=== PATIENT | female | born 1965 | race Caucasian/White ===

== ENCOUNTER 2017-09-06 13:44 | Inpatient (IN) | payer OTHER ==
[2017-09-06 15:30] LABS: ADD MAN DIFF? NO
[2017-09-06] MEDS: SOD CHLORIDE 0.9% 1,000 ML IV ×2 (15:31→23:11)
[2017-09-06 15:34] LABS: WHITE BLOOD COUNT 9.4 10^3/ul (4.8-10.8)
[2017-09-06 15:34] LABS: BASOPHILS % 0.3 % (0.0-2.0); EOSINOPHILS # 0.4 10^3/ul (0.0-0.5); HEMATOCRIT 32.5 % (37.0-47.0); HEMOGLOBIN 10.9 g/dl (12.0-16.0); LYMPHOCYTES # 3.3 10^3/ul (0.8-2.9); LYMPHOCYTES % 35.6 % (15.0-51.0); MEAN CORPUSCULAR HEMOGLOBIN 30.7 pg (29.0-33.0); MEAN CORPUSCULAR HGB CONC 33.5 g/dl (32.0-37.0); MEAN CORPUSCULAR VOLUME 91.5 fl (82.0-101.0); MONOCYTE # 0.6 10^3/ul (0.3-0.9); MONOCYTES % 5.9 % (0.0-11.0); NEUTROPHILS % 53.9 % (39.0-77.0); PLATELET COUNT 245 10^3/UL (140-415); RED BLOOD COUNT 3.55 10^6/ul (4.20-5.40); RED CELL DISTRIBUTION WIDTH 12.3 % (11.5-14.5)
[2017-09-06 16:01] LABS: ANION GAP 16 (8-16); BLOOD UREA NITROGEN 37 mg/dl (7-20); CALCIUM 8.6 mg/dl (8.4-10.2); CARBON DIOXIDE 27 mmol/L (21-31); CHLORIDE 100 mmol/L (97-110); CREATININE 1.78 mg/dl (0.44-1.00); GLUCOSE 286 mg/dl (70-220); SODIUM 137 mmol/L (135-144)
[2017-09-06 16:18] LABS: POTASSIUM 6.1 mmol/L (3.5-5.1); TROPONIN-I < 0.012 ng/ml (0.00-0.12)
[2017-09-06 17:06] LABS: ADD UMIC YES; UR ASCORBIC ACID NEGATIVE (NEGATIVE); UR BACTERIA MANY /HPF (NONE SEEN); UR BILIRUBIN (Dip) NEGATIVE (NEGATIVE); UR BLOOD (Dip) NEGATIVE (NEGATIVE); UR BUDDING YEAST FEW /HPF (NONE SEEN); UR CLARITY SLIGHTLY CLOUDY (CLEAR); UR COLOR YELLOW (YELLOW); UR GLUCOSE (Dip) 3+ mg/dL (NEGATIVE); UR KETONES (Dip) NEGATIVE (NEGATIVE); UR LEUKOCYTE ESTERASE (Dip) 2+ Leu/ul (NEGATIVE); UR NITRITE (Dip) NEGATIVE (NEGATIVE); UR RBC 1 /HPF (0-5); UR SPECIFIC GRAVITY (Dip) 1.005 (1.003-1.030); UR SQUAMOUS EPITHELIAL CELL FEW /HPF (FEW); UR TOTAL PROTEIN (Dip) 3+ mg/dl (NEGATIVE); UR UROBILINOGEN (Dip) NEGATIVE (NEGATIVE); UR WBC 41 /HPF (0-5)
[2017-09-06] MEDS ORDERED: DEXTROSE 50% 50 ML SYRINGE IV ×3 (18:30→22:00)
[2017-09-06] MEDS: CEFTRIAXONE 1 GM/50 ML (PMX) 50 ML IVPB (18:47)
[2017-09-06] MEDS: DEXTROSE 50% 50 ML SYRINGE IV (18:47)
[2017-09-06] MEDS: INSULIN REGULAR, HUMAN 100 UNIT/1 ML 3ML VIAL IVP (18:49)
[2017-09-06] MEDS ORDERED: SODIUM BICARBONATE (IV ADD) 150 MEQ in DEXTROSE 5% 1,000 ML IV (19:23)
[2017-09-06] MEDS ORDERED: DOCUSATE SODIUM 100 MG CAP PO (19:30)
[2017-09-06] MEDS ORDERED: HYDROCODONE/APAP (5/325) TAB PO (19:30)
[2017-09-06] MEDS ORDERED: ONDANSETRON 4 MG INJ IV (19:30)
[2017-09-06] MEDS ORDERED: ZOLPIDEM 5 MG TAB PO (19:30)
[2017-09-06] MEDS ORDERED: ACETAMINOPHEN 325 MG TAB PO (19:30)
[2017-09-06] MEDS ORDERED: LORAZEPAM 2 MG INJ IV (19:30)
[2017-09-06] MEDS ORDERED: BISACODYL 10 MG SUPP PR (19:30)
[2017-09-06] MEDS: HYDROmorphONE 0.5 MG/0.5 ML SYG IV (19:53)
[2017-09-06 20:14] LABS: ADD MAN DIFF? NO
[2017-09-06 20:18] LABS: BASOPHILS % 0.5 % (0.0-2.0); EOSINOPHILS # 0.4 10^3/ul (0.0-0.5); EOSINOPHILS % 4.4 % (0.0-7.0); HEMATOCRIT 29.3 % (37.0-47.0); LYMPHOCYTES # 3.4 10^3/ul (0.8-2.9); LYMPHOCYTES % 39.8 % (15.0-51.0); MEAN CORPUSCULAR HEMOGLOBIN 31.3 pg (29.0-33.0); MEAN CORPUSCULAR HGB CONC 34.1 g/dl (32.0-37.0); MEAN CORPUSCULAR VOLUME 91.8 fl (82.0-101.0); MEAN PLATELET VOLUME 10.9 fl (7.4-10.4); MONOCYTE # 0.6 10^3/ul (0.3-0.9); MONOCYTES % 6.7 % (0.0-11.0); NEUTROPHIL # 4.2 10^3/ul (1.6-7.5); NEUTROPHILS % 48.3 % (39.0-77.0); PLATELET COUNT 212 10^3/UL (140-415); RED BLOOD COUNT 3.19 10^6/ul (4.20-5.40); RED CELL DISTRIBUTION WIDTH 12.6 % (11.5-14.5)
[2017-09-06 20:18] LABS: WHITE BLOOD COUNT 8.7 10^3/ul (4.8-10.8)
[2017-09-06 20:42] LABS: ANION GAP 14 (8-16); BLOOD UREA NITROGEN 36 mg/dl (7-20); CALCIUM 8.4 mg/dl (8.4-10.2); CARBON DIOXIDE 28 mmol/L (21-31); CHLORIDE 105 mmol/L (97-110); CREATININE 1.53 mg/dl (0.44-1.00); GLUCOSE 255 mg/dl (70-220); POTASSIUM 5.2 mmol/L (3.5-5.1); SODIUM 142 mmol/L (135-144)
[2017-09-06 20:43] LABS: URIC ACID 5.9 mg/dl (3.1-7.9)
[2017-09-06 21:37] LABS: IONIZED CALCIUM 1.3 mmol/L (1.1-1.4)
[2017-09-06] MEDS ORDERED: GLUCOSE GEL 15 GRAM TUBE BUCCAL (22:00)
[2017-09-06] MEDS ORDERED: GLUCOSE GEL 15 GRAM TUBE PO ×2 (22:00)
[2017-09-06] MEDS ORDERED: GLUCAGON 1 MG INJ IM (22:00)
[2017-09-06 22:42] LABS: SODIUM,URINE RANDOM 22 mmol/L (30-90)
[2017-09-06 22:46] LABS: CREATININE,URINE RANDOM 42.54 mg/dl (20-320)
[2017-09-06 22:56] LABS: CREATINE KINASE 46 IU/L (23-200)
[2017-09-06] MEDS: NA POLYST SULFON 15 GM/60 ML BTL PR (22:59)
[2017-09-06] MEDS: FERROUS SULFATE (EC) 325 MG TAB PO (22:59)
[2017-09-06] MEDS: INSULIN REGULAR, HUMAN 100 UNIT/1 ML 3ML VIAL IV (23:00)
[2017-09-06] MEDS: ALBUTEROL 0.083% (NEB) 2.5 MG/3 ML AMP HHN (23:00)
[2017-09-06] MEDS: ATORVASTATIN 10 MG TAB PO (23:00)
[2017-09-06 23:09] LABS: CK INDEX 1.4; CK-MB 0.66 ng/ml (0.0-2.4)
[2017-09-06] MEDS: DIVALPROEX (ER) 250 MG TAB PO (23:16)
[2017-09-06 23:18] LABS: TROPONIN-I < 0.012 ng/ml (0.00-0.12)
[2017-09-06] MEDS: INSULIN GLARGINE [LANtus] 3 ML PEN SC (23:20)
[2017-09-07] MEDS: hydrALAzine 20 MG INJ IV
[2017-09-07] MEDS: ACCU-CHEK XX (02:00)
[2017-09-07] MEDS: SOD CHLORIDE 0.9% 1,000 ML IV ×2 (05:23→15:49)
[2017-09-07 06:06] LABS: ADD MAN DIFF? NO
[2017-09-07 06:17] LABS: BASOPHILS % 0.6 % (0.0-2.0); EOSINOPHILS # 0.3 10^3/ul (0.0-0.5); EOSINOPHILS % 4.4 % (0.0-7.0); HEMATOCRIT 28.8 % (37.0-47.0); HEMOGLOBIN 9.6 g/dl (12.0-16.0); LYMPHOCYTES # 3.1 10^3/ul (0.8-2.9); MEAN CORPUSCULAR HGB CONC 33.3 g/dl (32.0-37.0); MEAN CORPUSCULAR VOLUME 92.9 fl (82.0-101.0); MEAN PLATELET VOLUME 10.9 fl (7.4-10.4); MONOCYTE # 0.6 10^3/ul (0.3-0.9); MONOCYTES % 8.2 % (0.0-11.0); NEUTROPHIL # 2.9 10^3/ul (1.6-7.5); NEUTROPHILS % 41.7 % (39.0-77.0); PLATELET COUNT 208 10^3/UL (140-415); RED CELL DISTRIBUTION WIDTH 12.5 % (11.5-14.5)
[2017-09-07 06:17] LABS: WHITE BLOOD COUNT 6.9 10^3/ul (4.8-10.8)
[2017-09-07 06:47] LABS: ALANINE AMINOTRANSFERASE 23 IU/L (13-69); ALBUMIN 3.3 g/dl (3.3-4.9); ALBUMIN/GLOBULIN RATIO 0.97; ALKALINE PHOSPHATASE 97 IU/L (42-121); ANION GAP 15 (8-16); ASPARTATE AMINO TRANSFERASE 24 IU/L (15-46); BLOOD UREA NITROGEN 38 mg/dl (7-20); CARBON DIOXIDE 26 mmol/L (21-31); CHLORIDE 107 mmol/L (97-110); CHOL/HDL RATIO 6.8 RATIO; CHOLESTEROL 204 mg/dl (100-200); CREATININE 1.67 mg/dl (0.44-1.00); HDL CHOLESTEROL 30 mg/dl (37-92); LDL CHOLESTEROL,CALCULATED 109 mg/dl; MAGNESIUM 2.4 mg/dl (1.7-2.5); SODIUM 142 mmol/L (135-144); TOTAL PROTEIN 6.7 g/dl (6.1-8.1); TRIGLYCERIDES 323 mg/dl (0-149)
[2017-09-07] MEDS ORDERED: SOD CHLORIDE 0.9% 1,000 ML IV (06:58)
[2017-09-07 07:09] LABS: POTASSIUM 5.6 mmol/L (3.5-5.1)
[2017-09-07 07:15] LABS: GLUCOSE 412 mg/dl (70-220)
[2017-09-07] MEDS ORDERED: INSULIN ASPART [NOVOLOG] 3 ML PEN SC ×8 (08:00→18:05)
[2017-09-07 08:17] LABS: CREATINE KINASE 42 IU/L (23-200)
[2017-09-07 08:24] LABS: CK INDEX 1.5; CK-MB 0.62 ng/ml (0.0-2.4)
[2017-09-07 08:25] LABS: TROPONIN-I < 0.012 ng/ml (0.00-0.12)
[2017-09-07] MEDS: ASPIRIN 81 MG TAB PO (08:27)
[2017-09-07] MEDS: DULOXETINE 30 MG CAP DR PO (08:27)
[2017-09-07] MEDS: DIVALPROEX (ER) 250 MG TAB PO ×2 (08:27→20:36)
[2017-09-07] MEDS: HEPARIN 5,000 UNIT/0.5 ML VIAL SC ×2 (08:29→20:43)
[2017-09-07] MEDS ORDERED: INSULIN GLARGINE [LANtus] 3 ML PEN SC ×3 (08:30→20:00)
[2017-09-07] MEDS ORDERED: LORAZEPAM 1 MG TAB PO (08:30)
[2017-09-07] MEDS: CEFEPIME 1GM/50 ML (PMX) 50 ML IV ×2 (08:34→20:36)
[2017-09-07] MEDS: HYDROmorphONE 0.5 MG/0.5 ML SYG IV (08:35)
[2017-09-07] MEDS: FERROUS SULFATE (EC) 325 MG TAB PO ×2 (08:38→20:37)
[2017-09-07] MEDS: ALBUTEROL 0.083% (NEB) 2.5 MG/3 ML AMP HHN ×4 (09:00→21:00)
[2017-09-07] MEDS: CALCIUM CARBONATE 750 MG CHEW TAB PO ×3 (09:48→18:36)
[2017-09-07] MEDS: CALCIUM GLUCONATE 10% 1 GM in DEXTROSE 5% 100 ML IVPB (09:49)
[2017-09-07] MEDS: ISOSORBIDE MONONITRATE(SR)60 MG TAB PO (09:49)
[2017-09-07] MEDS: FAMOTIDINE 20 MG TAB PO ×2 (09:49→20:37)
[2017-09-07] MEDS: CYCLOBENZAPRINE 10 MG TAB PO ×3 (09:49→20:37)
[2017-09-07] MEDS: NIACIN (ER) 500 MG TAB PO ×2 (09:49→20:44)
[2017-09-07] MEDS: NA POLYST SULFON 15 GM/60 ML BTL PO ×2 (09:50→12:27)
[2017-09-07] MEDS: AMLODIPINE 10 MG TAB PO (10:21)
[2017-09-07] MEDS: INSULIN ASPART [NOVOLOG] 3 ML PEN SC ×5 (12:23→20:47)
[2017-09-07 14:59] LABS: CREATINE KINASE 68 IU/L (23-200)
[2017-09-07 15:10] LABS: CK INDEX 4.1; CK-MB 2.76 ng/ml (0.0-2.4)
[2017-09-07 15:26] LABS: TROPONIN-I 0.361 ng/ml (0.00-0.12)
[2017-09-07] MEDS: ATORVASTATIN 40 MG TAB PO (20:38)
[2017-09-07] MEDS ORDERED: VITAMIN A & D 5 GM OINT PACKET TOP (22:29)
[2017-09-07 23:37] LABS: ANION GAP 17 (8-16); BLOOD UREA NITROGEN 34 mg/dl (7-20); CALCIUM 8.2 mg/dl (8.4-10.2); CARBON DIOXIDE 26 mmol/L (21-31); CHLORIDE 109 mmol/L (97-110); GLUCOSE 182 mg/dl (70-220); POTASSIUM 5.6 mmol/L (3.5-5.1); SODIUM 146 mmol/L (135-144)
[2017-09-07 23:51] LABS: CK-MB 2.24 ng/ml (0.0-2.4)
[2017-09-07 23:51] LABS: TROPONIN-I 0.316 ng/ml (0.00-0.12)
[2017-09-08] MEDS: ALBUTEROL 0.083% (NEB) 2.5 MG/3 ML AMP HHN ×5 (01:52→16:34)
[2017-09-08] MEDS: ACCU-CHEK XX (02:00)
[2017-09-08] MEDS: SOD CHLORIDE 0.9% 1,000 ML IV ×2 (02:00→10:52)
[2017-09-08] MEDS: INSULIN ASPART [NOVOLOG] 3 ML PEN SC ×6 (08:00→17:30)
[2017-09-08 08:58] LABS: ADD MAN DIFF? NO
[2017-09-08] MEDS: INFLUENZA VIRUS VACCINE 0.5 ML (DISPENSING) IM* (09:00)
[2017-09-08] MEDS: FAMOTIDINE 20 MG TAB PO (09:01)
[2017-09-08] MEDS: CALCIUM CARBONATE 750 MG CHEW TAB PO ×2 (09:01→13:23)
[2017-09-08] MEDS: CYCLOBENZAPRINE 10 MG TAB PO ×2 (09:01→13:23)
[2017-09-08] MEDS: FERROUS SULFATE (EC) 325 MG TAB PO (09:01)
[2017-09-08] MEDS: ASPIRIN 81 MG TAB PO (09:01)
[2017-09-08] MEDS: NIACIN (ER) 500 MG TAB PO (09:01)
[2017-09-08 09:02] LABS: WHITE BLOOD COUNT 9.2 10^3/ul (4.8-10.8)
[2017-09-08 09:02] LABS: BASOPHILS % 0.3 % (0.0-2.0); EOSINOPHILS # 0.5 10^3/ul (0.0-0.5); EOSINOPHILS % 5.1 % (0.0-7.0); HEMOGLOBIN 8.8 g/dl (12.0-16.0); LYMPHOCYTES # 4.4 10^3/ul (0.8-2.9); LYMPHOCYTES % 47.9 % (15.0-51.0); MEAN CORPUSCULAR HEMOGLOBIN 30.8 pg (29.0-33.0); MEAN CORPUSCULAR HGB CONC 32.6 g/dl (32.0-37.0); MEAN CORPUSCULAR VOLUME 94.4 fl (82.0-101.0); MEAN PLATELET VOLUME 11.1 fl (7.4-10.4); MONOCYTE # 0.7 10^3/ul (0.3-0.9); MONOCYTES % 7.6 % (0.0-11.0); NEUTROPHIL # 3.6 10^3/ul (1.6-7.5); NEUTROPHILS % 38.9 % (39.0-77.0); PLATELET COUNT 194 10^3/UL (140-415); RED BLOOD COUNT 2.86 10^6/ul (4.20-5.40); RED CELL DISTRIBUTION WIDTH 12.6 % (11.5-14.5)
[2017-09-08] MEDS: ISOSORBIDE MONONITRATE(SR)60 MG TAB PO (09:02)
[2017-09-08] MEDS: AMLODIPINE 10 MG TAB PO (09:02)
[2017-09-08] MEDS: DIVALPROEX (ER) 250 MG TAB PO (09:02)
[2017-09-08] MEDS: DULOXETINE 30 MG CAP DR PO (09:06)
[2017-09-08 09:32] LABS: ALANINE AMINOTRANSFERASE 24 IU/L (13-69); ALBUMIN 2.7 g/dl (3.3-4.9); ALBUMIN/GLOBULIN RATIO 0.81; ALKALINE PHOSPHATASE 83 IU/L (42-121); ANION GAP 18 (8-16); ASPARTATE AMINO TRANSFERASE 19 IU/L (15-46); BILIRUBIN,INDIRECT 0.1 mg/dl (0-1.1); BILIRUBIN,TOTAL 0.1 mg/dl (0.2-1.3); BLOOD UREA NITROGEN 30 mg/dl (7-20); CARBON DIOXIDE 22 mmol/L (21-31); CHLORIDE 115 mmol/L (97-110); GLUCOSE 78 mg/dl (70-220); POTASSIUM 5.5 mmol/L (3.5-5.1); SODIUM 149 mmol/L (135-144)
[2017-09-08 10:35] LABS: MAGNESIUM 2.2 mg/dl (1.7-2.5)
[2017-09-08] MEDS: CEPHALEXIN 500 MG CAP PO (10:50)
[2017-09-08] MEDS: NA POLYST SULFON 15 GM/60 ML BTL PO (17:34)
[2017-09-08] MEDS: EPOETIN 4000 UNITS/1 ML INJ (ESRD) SC (17:35)
== END 2017-09-08 18:52 | disposition home health service (06) | DRG 683 ==
LOC: E/R 13:44 → MS4 19:23
DX: N17.9 Acute kidney failure, unspecified (principal); N39.0 Urinary tract infection, site not specified; E11.21 Type 2 diabetes mellitus with diabetic nephropathy; N30.00 Acute cystitis without hematuria; E87.5 Hyperkalemia; E86.0 Dehydration; E11.65 Type 2 diabetes mellitus with hyperglycemia; E11.22 Type 2 diabetes mellitus with diabetic chronic kidney disease; R55 Syncope and collapse; I12.9 Hypertensive chronic kidney disease with stage 1 through stage 4 chronic kidney disease, or unspecified chronic kidney disease; N18.9 Chronic kidney disease, unspecified; E78.5 Hyperlipidemia, unspecified; Z86.718 Personal history of other venous thrombosis and embolism; B96.20 Unspecified Escherichia coli [E. coli] as the cause of diseases classified elsewhere
CPT/HCPCS: 36415; 72170; 76775; 80048; 80053; 80061; 81001; 82330; 82550; 82553; 82962; 83036; 83735; 84155; 84300; 84443; 84484; 84560; 85025; 87086; 93005; 94640; 94664; 96374; 96375; 99285-25

== ENCOUNTER 2017-12-16 18:48 | Emergency (ER) | payer OTHER ==
[2017-12-16] MEDS: ONDANSETRON 4 MG INJ IV (20:19)
[2017-12-16] MEDS: morphine 4 MG/ML VIAL IV (20:19)
[2017-12-16] MEDS: SOD CHLORIDE 0.9% 1,000 ML IV ×2 (20:20→22:04)
[2017-12-16 20:28] LABS: ADD MAN DIFF? NO
[2017-12-16 20:29] LABS: WHITE BLOOD COUNT 8.9 10^3/ul (4.8-10.8)
[2017-12-16 20:29] LABS: BASOPHIL # 0.1 10^3/ul (0.0-0.1); BASOPHILS % 0.6 % (0.0-2.0); EOSINOPHILS # 0.2 10^3/ul (0.0-0.5); EOSINOPHILS % 2.4 % (0.0-7.0); HEMATOCRIT 30.3 % (37.0-47.0); HEMOGLOBIN 10.3 g/dl (12.0-16.0); LYMPHOCYTES # 3.5 10^3/ul (0.8-2.9); LYMPHOCYTES % 39.5 % (15.0-51.0); MEAN CORPUSCULAR HEMOGLOBIN 30.9 pg (29.0-33.0); MONOCYTE # 0.5 10^3/ul (0.3-0.9); MONOCYTES % 6.1 % (0.0-11.0); NEUTROPHIL # 4.6 10^3/ul (1.6-7.5); NEUTROPHILS % 51.1 % (39.0-77.0); PLATELET COUNT 265 10^3/UL (140-415); RED BLOOD COUNT 3.33 10^6/ul (4.20-5.40); RED CELL DISTRIBUTION WIDTH 12.1 % (11.5-14.5)
[2017-12-16 20:49] LABS: ALANINE AMINOTRANSFERASE 21 IU/L (13-69); ALBUMIN 4.3 g/dl (3.3-4.9); ALBUMIN/GLOBULIN RATIO 1.19; ALKALINE PHOSPHATASE 103 IU/L (42-121); ANION GAP 19 (8-16); ASPARTATE AMINO TRANSFERASE 20 IU/L (15-46); BILIRUBIN,INDIRECT 0.5 mg/dl (0-1.1); BILIRUBIN,TOTAL 0.5 mg/dl (0.2-1.3); BLOOD UREA NITROGEN 32 mg/dl (7-20); CALCIUM 9.2 mg/dl (8.4-10.2); CARBON DIOXIDE 22 mmol/L (21-31); CHLORIDE 100 mmol/L (97-110); CREATININE 2.34 mg/dl (0.44-1.00); GLUCOSE 110 mg/dl (70-220); LIPASE 289 U/L (23-300); POTASSIUM 5.9 mmol/L (3.5-5.1); SODIUM 135 mmol/L (135-144); TOTAL PROTEIN 7.9 g/dl (6.1-8.1)
[2017-12-16 20:54] LABS: ADD UMIC YES; UR ASCORBIC ACID NEGATIVE (NEGATIVE); UR BILIRUBIN (Dip) NEGATIVE (NEGATIVE); UR BLOOD (Dip) NEGATIVE (NEGATIVE); UR CLARITY CLOUDY (CLEAR); UR COLOR YELLOW (YELLOW); UR GLUCOSE (Dip) NEGATIVE (NEGATIVE); UR HYALINE CAST FEW /HPF (NONE SEEN); UR KETONES (Dip) NEGATIVE (NEGATIVE); UR LEUKOCYTE ESTERASE (Dip) TRACE Leu/ul (NEGATIVE); UR MUCUS FEW /HPF (NONE SEEN); UR NITRITE (Dip) NEGATIVE (NEGATIVE); UR RBC 1 /HPF (0-5); UR SPECIFIC GRAVITY (Dip) 1.011 (1.003-1.030); UR SQUAMOUS EPITHELIAL CELL MODERATE /HPF (FEW); UR TOTAL PROTEIN (Dip) 3+ mg/dl (NEGATIVE); UR UROBILINOGEN (Dip) NEGATIVE (NEGATIVE); UR WBC 5 /HPF (0-5)
[2017-12-16 21:01] LABS: TROPONIN-I < 0.012 ng/ml (0.000-0.120)
[2017-12-16] MEDS: FUROSEMIDE 40 MG INJ IV (23:12)
== END 2017-12-17 01:58 | disposition short-term general hospital (02) ==
LOC: E/R 12-17 01:58
DX: E87.5 Hyperkalemia (principal); N17.9 Acute kidney failure, unspecified; E11.9 Type 2 diabetes mellitus without complications; Z79.01 Long term (current) use of anticoagulants; Z79.4 Long term (current) use of insulin; Z79.82 Long term (current) use of aspirin
CPT/HCPCS: 36415; 80053; 81001; 82962; 83690; 84484; 85025; 93005; 96374; 96375; 99285-25